=== PATIENT | male | born 1985 | race Caucasian/White ===

== ENCOUNTER 2020-12-17 17:04 | Emergency (ER) | payer OTHER ==
[~2020-12-17] VITALS: Ht 185.4 cm; Wt 88.5 kg
[2020-12-17] MEDS ORDERED: OXAYDO5 M1 PO (22:02)
== END 2020-12-17 22:33 | disposition home or self-care (01) ==
LOC: ER 17:04
DX: S82.041A Displaced comminuted fracture of right patella, initial encounter for closed fracture (principal); W20.8XXA Other cause of strike by thrown, projected or falling object, initial encounter
CPT/HCPCS: 29505; 73564; 73706; 96372-59; 96374-59; 99284-25; A9270; J1170; J1885; Q9967